=== PATIENT | female | born 1970 | race Hispanic/Latino ===

== ENCOUNTER 2016-08-07 09:06 | Emergency (ER) | payer OTHER ==
[~2016-08-07] VITALS: Ht 160 cm; Wt 90.7 kg
[2016-08-07 09:09] VITALS: BP 156/99
--- NOTE | 2016-08-07 09:27 | ED ANKLE/FOOT INJURY COMPLAINT ---
History of Present Illness General Chief Complaint: Foot or Ankle Injury Stated Complaint: L ANKLE INJURY Source: patient Exam Limitations: no limitations Vital Signs & Intake/Output Vital Signs & Intake/Output Vital Signs Date Time Temp Pulse Resp B/P B/P Pulse O2 O2 Flow FiO2 Mean Ox Delivery Rate 08/07 0909 96.8 102 15 156/99 97 Room Air Room Air Allergies Coded Allergies: No Known Allergies (08/07/16) Reconcile Medications Clonazepam 1 MG TABLET 1 TAB PO BIDP PRN ANXIETY (Reported) Triage Note: PT TO ED FOR C/C OF L ANKLE PAIN S/P ?TWISTING ANKLE IN POT HOLE. +CMS. AMBULATORY IN TRIAGE. ICE PACK PROVIDED AND MEDICATED WITH MOTRIN IN TRIAGE. Triage Nurses Notes Reviewed? yes Occurred: yesterday Duration: hour(s): Timing: recent history Severity: moderate Pain/Injury Location: Left: Ankle. Method of Injury: twisted No Modifying Factors: none Associated Symptoms: swelling : No Patient currently breastfeeds: No HPI: 46YO F presents to ED complaining of left ankle pain. Patient states that yesterday while walking in parking lot she stepping in a pot hole and twisted her ankle. Twisting mechanism was described as eversion. She immediately felt pain however did not fall down and was able to walk into the store however had to leave shortly because the pain was worsening. Pain is worse with movement or trying to walk and patient has been limping, favoring her right leg, due to the pain. She used ice and elevated her left leg last night. She has not taken any medication for the pain yet. She denies head trauma, bleeding, skin changes, numbness, back pain, chest pain, abdominal pain. (MADELIN FAN PA-C) Past History Travel History Traveled to [place] past 21 day No Medical History Any Pertinent Medical History? 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 No (MADELIN FAN PA-C) Review of Systems Review of Systems Constitutional: Reports: no symptoms. EENTM: Reports: no symptoms. Respiratory: Reports: no symptoms. Cardiovascular: Reports: no symptoms. GI: Reports: no symptoms. Genitourinary: Reports: no symptoms. Musculoskeletal: Reports: see HPI. Skin: Reports: no symptoms. Neurological/Psychological: Reports: no symptoms. Hematologic/Endocrine: Reports: no symptoms. Immunologic/Allergic: Reports: no symptoms. All Other Systems: Reviewed and Negative (MADELIN FAN PA-C) Physical Exam Physical Exam General Appearance: well developed/nourished, no apparent distress, alert, awake Head: atraumatic, normal appearance Eyes: Bilateral: normal appearance, EOMI. Ears, Nose, Throat: hearing grossly normal Neck: normal inspection, supple Cardiovascular/Respiratory: no respiratory distress Back: normal inspection, normal range of motion Leg/Knee/Thigh Left: normal range of motion, normal inspection, no tenderness Leg/Knee/Thigh Right: normal range of motion, normal inspection Ankle Left: Mild swelling over lateral malleolus, Tenderness at lateral malleolus and lateral ankle, ROM with flexion, extension and inversion of ankle intact, ROM with eversion limited due to pain. Ankle Right: normal inspection, normal range of motion Foot Left: normal inspection, normal range of motion, no tenderness Foot Right: normal inspection, normal range of motion, no tenderness Neuro/Vascular: normal motor function, normal sensation Skin: intact, normal color, warm/dry, no ecchymosis (MADELIN FAN PA-C) Progress Differential Diagnosis: cellulitis, septic arthritis, gout, fracture, dislocation, sprain Diagnostic Imaging: Viewed by Me: Radiology Read. Discussed w/RAD: Radiology Read. Radiology Impression: PATIENT: CAROLYN LEON PRESENT AGE : 46 PATIENT ACCOUNT NO: [id number] : 72 LOCATION: [facility] ORDERING PHYSICIAN: FARHAN GAYLE MD SERVICE DATE: 08/07/16 EXAM TYPE: RAD - XRY -TWO VIEW LEFT ANKLE EXAMINATION: XR ANKLE, LEFT CLINICAL INFORMATION: Left ankle pain and swelling after injury. Evaluate for fracture. COMPARISON: None TECHNIQUE: Left ankle, AP and lateral views FINDINGS: Soft tissues of the lateral ankle are swollen. No ankle joint effusion. Talar dome is well- positioned within the intact ankle mortise. Tibiofibular syndesmotic space is normal. No acute fractures are identified. No evidence of osteochondral injury at the talar dome. Small plantar calcaneal enthesophyte. IMPRESSION: 1. Posttraumatic soft tissue swelling of the lateral ankle. 2. No acute fracture or malalignment. DICTATED BY: MERYL BARNETT MD DATE/TIME DICTATED:08/07/16999 AIDS NURSE:GENARO DATE/TIME TRANSCRIBED:08/07/16999 CONFIDENTIAL, DO NOT COPY WITHOUT APPROPRIATE AUTHORIZATION. <Electronically signed in Other Vendor System> SIGNED BY: MERYL BARNETT MD 08/07/16 1005 (MADELIN FAN PA-C) Plan of Care: Laboratory Tests 08/07/16927: Urine Test Cancelled Xrays show soft tissue swelling with no acute fracture. Patient is able to ambulate while in ED. Likely ankle sprain which is consistent with mechanism of injury. PAtient was instructed to use RICE while at home. She will follow up with her primary care doctor or return here with any worsening symptoms. Patient was discussed with Dr. Gayle. Patient is in agreement with plan of care. (MADELIN FAN PA-C) Diagnostic Imaging: Viewed by Me: Radiology Read. Discussed w/RAD: Radiology Read. Radiology Impression: PATIENT: CAROLYN LEON PRESENT AGE : 46 PATIENT ACCOUNT NO: [id number] : 72 LOCATION: [facility] ORDERING PHYSICIAN: FARHAN GAYLE MD SERVICE DATE: 08/07/16 EXAM TYPE: RAD - XRY -TWO VIEW LEFT ANKLE EXAMINATION: XR ANKLE, LEFT CLINICAL INFORMATION: Left ankle pain and swelling after injury. Evaluate for fracture. COMPARISON: None TECHNIQUE: Left ankle, AP and lateral views FINDINGS: Soft tissues of the lateral ankle are swollen. No ankle joint effusion. Talar dome is well- positioned within the intact ankle mortise. Tibiofibular syndesmotic space is normal. No acute fractures are identified. No evidence of osteochondral injury at the talar dome. Small plantar calcaneal enthesophyte. IMPRESSION: 1. Posttraumatic soft tissue swelling of the lateral ankle. 2. No acute fracture or malalignment. DICTATED BY: MERYL BARNETT MD DATE/TIME DICTATED:08/07/16999 AIDS NURSE:RAD.CONDON DATE/TIME TRANSCRIBED:08/07/16999 CONFIDENTIAL, DO NOT COPY WITHOUT APPROPRIATE AUTHORIZATION. <Electronically signed in Other Vendor System> SIGNED BY: MERYL BARNETT MD 08/07/16 1005 (FARHAN GAYLE MD) Departure Departure Condition: Stable Referrals: NITHIN GHOSH,JANETT Gusman (PCP/Family) Additional Instructions: TAKE Motrin or Alieve as prescribed as needed for pain. Rest, apply ice, use AN wrap for compression, elevated left leg. Use supportive shoes for more ankle support. Follow up with your Primary care doctor. Return with worsening symptoms or concerns. 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 I have also reviewed all the pertinent lab results and diagnostic results. I agree with the findings and the plan of care as documented in the PA's/PRODUCTION HONING MACHINE OPERATOR's documentation. [X] I have reviewed the ED Record and agree with the PA's/PRODUCTION HONING MACHINE OPERATOR's documentation. [] Additions or exceptions (if any) to the PAs/PRODUCTION HONING MACHINE OPERATOR's note and plan are summarized below: [] (FARHAN GAYLE MD) Procedures Splinting Location: LEFT ANKLE OLMSTEAD WRAP (FARHAN GAYLE MD)
--- NOTE | 2016-08-07 10:05 | RADIOLOGY REPORT ---
EXAMINATION: XR ANKLE, LEFT CLINICAL INFORMATION: Left ankle pain and swelling after injury. Evaluate for fracture. COMPARISON: None TECHNIQUE: Left ankle, AP and lateral views FINDINGS: Soft tissues of the lateral ankle are swollen. No ankle joint effusion. Talar dome is well-positioned within the intact ankle mortise. Tibiofibular syndesmotic space is normal. No acute fractures are identified. No evidence of osteochondral injury at the talar dome. Small plantar calcaneal enthesophyte. IMPRESSION: 1. Posttraumatic soft tissue swelling of the lateral ankle. 2. No acute fracture or malalignment.
[2016-08-07] MEDS ORDERED: CLONAZEPAM1 M2 PO (10:29)
== END 2016-08-07 10:30 ==
LOC: ERH 09:06
DX: S93.402A Sprain of unspecified ligament of left ankle, initial encounter (principal); X50.9XXA Other and unspecified overexertion or strenuous movements or postures, initial encounter; Y93.01 Activity, walking, marching and hiking; Y92.481 Parking lot as the place of occurrence of the external cause
CPT/HCPCS: 73600-LT; 81025